=== PATIENT | female | born 1970 | race Caucasian/White ===

== ENCOUNTER 2021-10-01 12:19 | Inpatient (IN) ==
--- NOTE | 2021-10-01 14:31 | DR.H&P ---
H&P - History & Physical for Day of: H&P Date: 10/01/21 - Chief Complaint Chief Complaint: blood in stool - History of Present Illness History of Present Illness: PT IS 51F DIRECT ADMIT FROM DR LAW OFFICE WITH REPORTS OF BLACK TARRY STOOL FOR SEVERAL DAYS AND INCREASED WEAKNESS. PT RECENTLY HAD COVID THEN DEVELOPED DVT/PE AND HAS BEEN ON PO ELIQUIS. PT ALSO HAS KNOWN HX OF IRON DEFICIENCY ANEMIA. PT ADMITTED FOR TREATMENT OF GI BLEED, SYMPTOMATIC ANEMIA - Past Medical History Past Medical History: Anemia, Arthritis - Social History Does patient currently use any type of tobacco product: No Have you used tobacco products in the last 12 months: No Type of Tobacco Use: None Does any household member use tobacco: No Alcohol Use: Occasionally Drug Use: None Risks, benefits, and alternatives of opioids discussed: No Prescription drug monitoring program results: PDMP reviewed and no concerns identified - Review of Systems Constitutional: Weakness, Malaise Eyes: No Symptoms Reported ENT: No Symptoms Reported Respiratory: Shortness of Breath Cardiovascular: Edema Gastrointestinal: Melena Genitourinary: No Symptoms Reported Musculoskeletal: No Symptoms Reported Skin: No Symptoms Reported Neurological: Weakness Oriented: Normal Eyes: Normal Ear: Normal Nose: Normal Throat: Normal Respiratory: RLL Diminished, LLL Diminished Cardiovascular: Normal, Edema : Normal Auscultation: Bowel Sounds: Normal Palpation: Normal Tenderness: Normal Skin: Decreased Turgur Musculoskeletal: Back:Lumbar Affect: Anxious Speech Pattern: Clear, Appropriate - Assessment/Plan (1) GI bleed Status: Acute Plan: ADMIT, OCCULT STOOL X 3. NPO, PROTONIX 40 IV BID, HOLD ELIQUIS. TYPE AND CROSS, THEN TRANSFUSE PRBC PER PROTOCOL. BP AND CARDIAC MONITORING, EKG AND CXR ON ADMISSION. 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
[2021-10-01 14:53] LABS: ABG ALLEN TEST POS; ABG BASE EXCESS 1.4 mmol/L (-2.0-2.0); ABG HCO3 24.7 mmol/L (22-26)
[2021-10-01] MEDS: NS 1,000 ML IV 1,000 ML IV SCH ×2 (15:12)
[2021-10-01 15:35] LABS: BILIRUBIN,URINE NEGATIVE (NEGATIVE); BLOOD/HEMOGLOBIN,URINE NEGATIVE (NEGATIVE); GLUCOSE, URINE NEGATIVE (NEGATIVE); KETONES,URINE NEGATIVE (NEGATIVE); LEUKOCYTE ESTERASE ,URINE NEGATIVE (NEGATIVE); NITRITES,URINE POSITIVE (NEGATIVE); PROTEIN,URINE 1+ (NEGATIVE); UROBILINOGEN,URINE NORMAL (NORMAL)
[2021-10-01 15:42] LABS: ALANINE AMINOTRANSFERASE 16 Units/L (12-78); ALBUMIN 3.2 g/dL (3.4-5.0); ALKALINE PHOSPHATASE 81 Units/L (46-116); ASPARTATE AMINO TRANSFERASE 12 Units/L (15-37); BLOOD UREA NITROGEN 26 mg/dL (7-18); CALCIUM 8.3 mg/dL (8.5-10.1); CARBON DIOXIDE 25.4 mmol/L (21-32); CHLORIDE 107 mmol/L (98-107); COR CA(FOR HYPOALB) 8.9 mg/dL (8.5-10.1); COR NA(FOR HYPERGLY) 143 mmol/L (136-145); CREATININE 1.11 mg/dL (0.55-1.02); SODIUM 142 mmol/L (136-145); TOTAL PROTEIN 6.1 g/dL (6.4-8.2); eGFR NON BLACK RACES 55 (>60)
[2021-10-01 15:45] LABS: APPEARANCE,URINE SLIGHTLY HAZY (CLEAR); BACTERIA,URINE 3+ /HPF (NEGATIVE); COLOR,URINE YELLOW (YELLOW); RBC,URINE 0-2 /HPF (0-3); SQUAMOUS EPITHELIAL CELL,UR RARE /HPF (NEGATIVE)
[2021-10-01 16:11] LABS: IRON 11 ug/dL (50-175)
[2021-10-01 16:22] LABS: BASOPHILS % (AUTO) 0.7 % (0.2-1.0); EOSINOPHILS # (AUTO) 0.1 x10^3/uL (0.0-0.2); LYMPHOCYTES % (AUTO) 17.3 % (21.0-51.0); MEAN CORPUSCULAR HEMOGLOBIN 19.8 pg (27.0-34.0); MEAN CORPUSCULAR HGB CONC 31.4 g/dL (33.0-35.0); MEAN CORPUSCULAR VOLUME 62.9 fL (80.0-100.0); MEAN PLATELET VOLUME 8.5 fL (7.4-11.0); MONOCYTES # (AUTO) 0.5 x10^3/uL (0.3-0.8); NEUTROPHILS # (AUTO) 4.3 x10^3/uL (2.2-4.8); RED CELL DISTRIBUTION WIDTH 21.1 % (11.6-16.5)
--- NOTE | 2021-10-01 16:29 | RAD ---
HISTORYSOBSTUDYCHEST x-ray, 1 VIEWCOMPARISONNoneFINDINGSThere is left retrocardiac opacity that could be elevated left hemidiaphragm, mass, hiatus hernia, rounded atelectasis, or rounded pneumonia. Possible vague right middle lobe infiltrate is seen, also. Lung volumes are very low. No pneumothorax is seen. Heart is probably normal in size.IMPRESSIONPoor inspiration with left retrocardiac density that is of uncertain etiology. As no prior exams are available for comparison, recommend further evaluation with contrast enhanced CT of the chest.Electronically signed by: Pk Anthony (Oct 01, 2021 16:27:22)
[2021-10-01 16:38] LABS: HEMATOCRIT 17.6 % (36.0-47.0); HEMOGLOBIN 5.5 g/dL (12.0-16.0)
[2021-10-01 16:39] LABS: ANISOCYTOSIS 1+; MICROCYTOSIS 2+; PLATELET MORPHOLOGY COMMENT NORMAL (NORMAL)
[2021-10-01] MEDS ORDERED: TYLENOL 325 MG TAB PO ONE (17:15)
[2021-10-01] MEDS: ROCEPHIN VIAL 1 GRAM 1 G in NS 100 ML IV 100 ML IV SCH (17:31)
[2021-10-01] MEDS: PROTONIX INJ 40 MG VIAL IVP SCH ×2 (17:31→20:03)
[2021-10-01] MEDS ORDERED: POTASSIUM CHL 60 MEQ/NS 0.45% 500 ML IV PRN (18:19)
[2021-10-01] MEDS ORDERED: KLOR-CON PO PRN (18:19)
[2021-10-01] MEDS ORDERED: MICRO K EXTEN CAP 10 MEQ PO PRN (18:19)
[2021-10-01] MEDS ORDERED: POTASSIUM CHLORIDE LIQ 20 MEQ UDC PO PRN (18:19)
[2021-10-01] MEDS ORDERED: POTASSIUM CHL 40 MEQ/NS 0.45% 500 ML IV PRN (18:19)
[2021-10-01] MEDS: K-DUR TAB 20 MEQ PO PRN (20:03)
[2021-10-02] MEDS: NS 1,000 ML IV 1,000 ML IV SCH ×3 (04:57→20:15)
[2021-10-02 05:59] LABS: EOSINOPHILS # (AUTO) 0.1 x10^3/uL (0.0-0.2); EOSINOPHILS % (AUTO) 1.9 % (0.9-2.9); LYMPHOCYTES # (AUTO) 1.3 X10^3/uL (1.3-2.9); LYMPHOCYTES % (AUTO) 28.8 % (21.0-51.0); MEAN CORPUSCULAR HEMOGLOBIN 19.7 pg (27.0-34.0); MEAN CORPUSCULAR HGB CONC 30.9 g/dL (33.0-35.0); MEAN CORPUSCULAR VOLUME 63.7 fL (80.0-100.0); MEAN PLATELET VOLUME 8.9 fL (7.4-11.0); MONOCYTES # (AUTO) 0.4 x10^3/uL (0.3-0.8); MONOCYTES % (AUTO) 8.9 % (0.0-13.0); NEUTROPHILS # (AUTO) 2.7 x10^3/uL (2.2-4.8); NEUTROPHILS % (AUTO) 59.4 % (42.0-75.0); RED BLOOD COUNT 2.38 X10^6/uL (3.5-5.4); WHITE BLOOD COUNT 4.5 X10^3/uL (3.6-10.0)
[2021-10-02 06:02] LABS: ALANINE AMINOTRANSFERASE 15 Units/L (12-78); ALBUMIN 2.6 g/dL (3.4-5.0); ALKALINE PHOSPHATASE 67 Units/L (46-116); ASPARTATE AMINO TRANSFERASE 14 Units/L (15-37); BLOOD UREA NITROGEN 19 mg/dL (7-18); CALCIUM 8.1 mg/dL (8.5-10.1); CARBON DIOXIDE 27.1 mmol/L (21-32); CHLORIDE 109 mmol/L (98-107); COR CA(FOR HYPOALB) 9.2 mg/dL (8.5-10.1); CREATININE 0.83 mg/dL (0.55-1.02); SODIUM 143 mmol/L (136-145); TOTAL PROTEIN 5.3 g/dL (6.4-8.2); eGFR NON BLACK RACES > 60 (>60)
[2021-10-02 06:19] LABS: HEMATOCRIT 15.1 % (36.0-47.0); HEMOGLOBIN 4.7 g/dL (12.0-16.0)
[2021-10-02 06:20] LABS: ANISOCYTOSIS 1+; HYPOCHROMASIA 3+; MICROCYTOSIS 2+; PLATELET MORPHOLOGY COMMENT NORMAL (NORMAL); POIKILOCYTOSIS 1+; TARGET CELLS PRESENT
[2021-10-02] MEDS: ROCEPHIN VIAL 1 GRAM 1 G in NS 100 ML IV 100 ML IV SCH (08:21)
[2021-10-02] MEDS: PROTONIX INJ 40 MG VIAL IVP SCH ×2 (08:21→20:13)
[2021-10-02] MEDS ORDERED: NS 100 ML IV 100 ML with VENOFER 400 MG IV NR ×2 (09:00)
--- NOTE | 2021-10-02 12:12 | VAS ---
HISTORY: [Extremity pain, swelling, and edema]Study: Bilateral lower extremity Doppler venous ultrasound.TECHNIQUE: Multiple mast scale and color flow Doppler images of the deep venous system were obtained of the [right and left] lower extremity.FINDINGS: The deep venous system of the [right and left lower extremities were] evaluated from the level of the common femoral veins through the popliteal veins, bilaterally. Normal color flow and augmentation can be observed. In addition, normal compression is seen throughout the deep venous system. [No Zepeda's cyst is seen].IMPRESSION:1. Negative examination for DVT.Electronically signed by: MICHELLE THEODORE III (Oct 02, 2021 12:10:47)
[2021-10-02 12:31] LABS: HEMATOCRIT 16.1 % (36.0-47.0); HEMOGLOBIN 4.9 g/dL (12.0-16.0)
[2021-10-02] MEDS ORDERED: PROCRIT or EPOGEN VIAL 40,000 UNITS SC ONE (22:13)
[2021-10-02 22:33] LABS: BASOPHILS % (AUTO) 0.8 % (0.2-1.0); MEAN CORPUSCULAR HEMOGLOBIN 19.5 pg (27.0-34.0); MEAN CORPUSCULAR HGB CONC 30.8 g/dL (33.0-35.0); MONOCYTES # (AUTO) 0.5 x10^3/uL (0.3-0.8); MONOCYTES % (AUTO) 8.8 % (0.0-13.0); NEUTROPHILS # (AUTO) 4.6 x10^3/uL (2.2-4.8)
[2021-10-02 22:37] LABS: EOSINOPHILS % (AUTO) 0.7 % (0.9-2.9); LYMPHOCYTES # (AUTO) 0.9 X10^3/uL (1.3-2.9); LYMPHOCYTES % (AUTO) 14.3 % (21.0-51.0); MEAN CORPUSCULAR VOLUME 63.3 fL (80.0-100.0); MEAN PLATELET VOLUME 8.6 fL (7.4-11.0); NEUTROPHILS % (AUTO) 75.4 % (42.0-75.0); RED BLOOD COUNT 2.57 X10^6/uL (3.5-5.4); RED CELL DISTRIBUTION WIDTH 21.2 % (11.6-16.5); WHITE BLOOD COUNT 6.1 X10^3/uL (3.6-10.0)
[2021-10-02 22:44] LABS: HEMATOCRIT 16.2 % (36.0-47.0)
[2021-10-02 22:55] LABS: ANISOCYTOSIS 1+; PLATELET MORPHOLOGY COMMENT NORMAL (NORMAL)
[2021-10-02 22:59] LABS: MICROCYTOSIS 2+; POIKILOCYTOSIS 1+; TEAR DROP CELLS PRESENT
[2021-10-02 23:00] LABS: OVALOCYTES PRESENT
[2021-10-02 23:01] LABS: HYPOCHROMASIA 2+
[2021-10-03] MEDS ORDERED: NS 100 ML IV 100 ML ONE (03:54)
[2021-10-03] MEDS ORDERED: NS 250 ML IV 250 ML IV ONE (07:22)
[2021-10-03] MEDS ORDERED: LASIX IVP ONE (08:27)
[2021-10-03] MEDS: PROTONIX INJ 40 MG VIAL IVP SCH ×2 (08:39→20:20)
[2021-10-03] MEDS: ROCEPHIN VIAL 1 GRAM 1 G in NS 100 ML IV 100 ML IV SCH (08:40)
[2021-10-03 10:32] LABS: TEAR DROP CELLS PRESENT
[2021-10-03] MEDS ORDERED: LASIX ONE (11:16)
[2021-10-03] MEDS: NS 1,000 ML IV 1,000 ML IV SCH ×2 (11:25→22:46)
--- NOTE | 2021-10-03 12:15 | PCM.PROG ---
Progress Note - Progress Note for Day of Date of Exam: 10/03/21 - Subjective Subjective: PT IS 51 WF DIRECT ADMIT FROM DR LAW OFFICE WITH GI BLEED AND SYMPTOMATIC ANEMIA. PT WAS NPO EXCEPT FOR PO MEDICATION WITH NS AT 50CC/HR FOR GENTLE HYDRATION. PT GIVEN IV IRON INFUSION WITH HGB 4.9. PT INSTRUCTED TO OBTAIN STOOL SAMPLE. PT BP WAS 100/50 LAST PM PRIOR TO RECEIVING FIRST UNIT PRBC, IMPROVING TO 128/77 THIS AM POST FIST UNIT. PT HGB AT 5.0 THIS MORNING. PLAN TO CONTINUE WITH 2ND UNIT PRBC. PT GIVEN PROTCRIT 40K INJECTION LAST PM PER DR LAW. PT REPORTS LAST EGD AND COLOSCOPY WAS IN [place] OVER 6 MOS AGO. PT HAD BEEN ON ELIQUIS FOR DVT/PE SINCE April, POST COVID COMPLICATIONS. WE ARE CURRENTLY HOLDING ANTICOAGULANT THERAPY DUE TO GI BLEED. DR LOPEZ TO [facility] FOR EVALUATION OF EGD. PT HAS LONG-TERM NSAID USE. - Past Medical Family Social History Past Med/Fam/Surg Hx: No changes since H&P Allergies: Allergies No Known Drug Allergies [NKDA] Allergy (Verified 10/01/21 14:41) - Review of Systems ROS: No change since H&P - Vital Signs and I&O's Vital Signs: Temperature 98.3 F Pulse Rate [Left] 99 Respiratory Rate 20 Blood Pressure [Right Arm] 108/64 Blood Pressure [Left Arm] 118/58 O2 Sat by Pulse Oximetry 100 Intake and Output: Intake & Output 10/01/21 10/02/21 10/03/21 10/04/21 11:59 11:59 11:59 11:59 Intake Total 1349 / 1349 2403 / 2403 Balance 1349 / 1349 2403 / 2403 - Physical Exam Oriented: Normal Eyes: Normal Ear: Normal Nose: Normal Throat: Normal Respiratory: Diminished Cardiovascular: Normal, Edema : Normal Auscultation: Bowel Sounds: Normal Tenderness: Normal Skin: Decreased Turgur Musculoskeletal: Right, Left, Leg, Back:Lumbar, Tender Affect: Anxious Speech Pattern: Clear, Appropriate - Laboratory and Diagnostics Result Diagrams: 10/02/21 22:21 10/02/21 04:35 Labs: 10/01/21 17:27 Blood Blood Culture - Preliminary 10/01/21 14:33 Urine,Clean Catch Urine Culture - Preliminary Laboratory WBC 6.1 X10^3/uL (3.6-10.0) 10/02/21 22:21 RBC 2.57 X10^6/uL (3.5-5.4) L 10/02/21 22:21 Hgb 5.0 g/dL (12.0-16.0) L* 10/02/21 22:21 Hct 16.2 % (36.0-47.0) L* 10/02/21 22:21 MCV 63.3 fL (80.0-100.0) L 10/02/21 22:21 MCH 19.5 pg (27.0-34.0) L 10/02/21 22:21 MCHC 30.8 g/dL (33.0-35.0) L 10/02/21 22:21 RDW 21.2 % (11.6-16.5) H 10/02/21 22:21 Plt Count 191 X10^3/uL (150.0-450.0) 10/02/21 22:21 Plt Count Comment Adequate (ADEQUATE) 10/02/21 22:21 MPV 8.6 fL (7.4-11.0) 10/02/21 22:21 Neut % (Auto) 75.4 % (42.0-75.0) H 10/02/21 22:21 Lymph % (Auto) 14.3 % (21.0-51.0) L 10/02/21 22:21 [place] % (Auto) 8.8 % (0.0-13.0) 10/02/21 22:21 Eos % (Auto) 0.7 % (0.9-2.9) L 10/02/21 22:21 Baso % (Auto) 0.8 % (0.2-1.0) 10/02/21 22:21 Neut # (Auto) 4.6 x10^3/uL (2.2-4.8) 10/02/21 22:21 Lymph # (Auto) 0.9 X10^3/uL (1.3-2.9) L 10/02/21 22:21 [place] # (Auto) 0.5 x10^3/uL (0.3-0.8) 10/02/21 22:21 Eos # (Auto) 0.0 x10^3/uL (0.0-0.2) 10/02/21 22:21 Baso # (Auto) 0.0 X10^3/uL (0.0-0.1) 10/02/21 22:21 Absolute Nucleated RBC 0.9 /100WBC 10/02/21 22:21 Plt Morphology Comment Normal (NORMAL) 10/02/21 22:21 RBC Morphology Abnormal (NORMAL) A 10/02/21 22:21 Hypochromasia 2+ A 10/02/21 22:21 Poikilocytosis 1+ A 10/02/21 22:21 Anisocytosis 1+ A 10/02/21 22:21 Microcytosis 2+ A 10/02/21 22:21 Target Cells Present 10/02/21 04:35 Tear Drop Cells Present 10/02/21 22:21 Ovalocytes Present 10/02/21 22:21 Sample Site Rrad 10/01/21 14:47 ABG pH 7.470 (7.35-7.45) H 10/01/21 14:47 ABG pCO2 34.0 mmHg (35.0-45.0) L 10/01/21 14:47 ABG pO2 92.0 mmHg (80.0-100.0) 10/01/21 14:47 ABG HCO3 24.7 mmol/L (22-26) 10/01/21 14:47 ABG O2 Saturation 98.0 % (90-100) 10/01/21 14:47 ABG Base Excess 1.4 mmol/L (-2.0-2.0) 10/01/21 14:47 Latrell Test Pos 10/01/21 14:47 A-a Gradient 15.0 mmHg 10/01/21 14:47 FiO2 21.0 10/01/21 14:47 Blood Gas Comments Pt stefania well elj sd 10/01/21 14:47 Sodium 143 mmol/L (136-145) 10/02/21 04:35 Corrected Sodium TNP 10/02/21 04:35 Potassium 3.9 mmol/L (3.5-5.1) 10/02/21 04:35 Chloride 109 mmol/L (98-107) H 10/02/21 04:35 Carbon Dioxide 27.1 mmol/L (21-32) 10/02/21 04:35 BUN 19 mg/dL (7-18) H 10/02/21 04:35 Creatinine 0.83 mg/dL (0.55-1.02) 10/02/21 04:35 Est GFR (MDRD) Af Amer > 60 (>60) 10/02/21 04:35 Est GFR (MDRD) Non-Af > 60 (>60) 10/02/21 04:35 Glucose 85 mg/dL (65-99) 10/02/21 04:35 Calcium 8.1 mg/dL (8.5-10.1) L 10/02/21 04:35 Corrected Calcium 9.2 mg/dL (8.5-10.1) 10/02/21 04:35 Magnesium 2.2 mg/dL (1.7-2.9) 10/01/21 15:45 Iron 11 ug/dL (50-175) L 10/01/21 15:45 Transferrin 322 mg/dL (202-364) 10/01/21 15:45 Ferritin 4 ng/mL (8-252) L 10/01/21 15:45 Total Bilirubin 0.30 mg/dL (0.2-1.0) 10/02/21 04:35 AST 14 Units/L (15-37) L 10/02/21 04:35 ALT 15 Units/L (12-78) 10/02/21 04:35 Alkaline Phosphatase 67 Units/L (46-116) 10/02/21 04:35 Total Protein 5.3 g/dL (6.4-8.2) L 10/02/21 04:35 Albumin 2.6 g/dL (3.4-5.0) L 10/02/21 04:35 Globulin 2.7 g/dL (2.5-4.5) 10/02/21 04:35 Albumin/Globulin Ratio 1.0 Ratio (1.1-2.1) L 10/02/21 04:35 Vitamin B12 200 pg/mL (193-986) 10/01/21 15:45 Folate 9.1 ng/mL (>8.6) 10/01/21 15:45 Specimen Type Clean catch urine 10/01/21 14:33 Urine Color Yellow (YELLOW) 10/01/21 14:33 Urine Appearance Slightly hazy (CLEAR) 10/01/21 14:33 Urine pH 6.0 (5.0 - 8.0) 10/01/21 14:33 Ur Specific [place] 1.025 (1.000-1.030) 10/01/21 14:33 Urine Protein 1+ (NEGATIVE) 10/01/21 14:33 Urine Glucose (UA) Negative (NEGATIVE) 10/01/21 14:33 Urine Ketones Negative (NEGATIVE) 10/01/21 14:33 Urine Blood Negative (NEGATIVE) 10/01/21 14:33 Urine Nitrite Positive (NEGATIVE) 10/01/21 14:33 Urine Bilirubin Negative (NEGATIVE) 10/01/21 14:33 Urine Urobilinogen Normal (NORMAL) 10/01/21 14:33 Ur Leukocyte Esterase Negative (NEGATIVE) 10/01/21 14:33 Urine RBC 0-2 /HPF (0-3) 10/01/21 14:33 Urine WBC 0-2 /HPF (0-5) 10/01/21 14:33 Ur Squamous Epith Cells Rare /HPF (NEGATIVE) 10/01/21 14:33 Amorphous Sediment Trace /HPF (NEGATIVE) 10/01/21 14:33 Urine Bacteria 3+ /HPF (NEGATIVE) 10/01/21 14:33 Ur Culture Indicated? Yes/culture set up 10/01/21 14:33 Stool Description 25 grams 10/02/21 18:45 Stl Occult Blood (IFOB) Negative (NEGATIVE) 10/02/21 18:45 Stool H. pylori Ag Negative (NEGATIVE) 10/02/21 18:45 SARS-CoV-2 (PCR) Negative (NEGATIVE) 10/01/21 14:33 Influenza Type A (PCR) Negative (NEGATIVE) 10/01/21 14:33 Influenza Type B (PCR) Negative (NEGATIVE) 10/01/21 14:33 RSV (PCR) Negative (NEGATIVE) 10/01/21 14:33 Blood Type A POSITIVE 10/01/21 15:45 Antibody Screen Negative 10/01/21 15:45 Antibody Identification Anti-Fya Anti-K Anti-c Anti-Susy 10/01/21 15:45 Antibody Identification Anti-Fya Anti-K Anti-c Anti-Susy 10/01/21 15:45 Antibody Identification Anti-Fya Anti-K Anti-c Anti-Susy 10/01/21 15:45 Antibody Identification Anti-Fya Anti-K Anti-c Anti-Susy 10/01/21 15:45 Crossmatch See Detail 10/01/21 15:45 - Plan (1) GI bleed Status: Acute Plan: OCCULT STOOL X 3, GI CONSULT. PROTONIX 40 IV BID, HOLD ELIQUIS. TYPE AND CROSS, THEN TRANSFUSE 2U PRBC PER PROTOCOL. BP AND CARDIAC MONITORING,. EKG AND CXR ON ADMISSION. 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
[2021-10-03 13:54] LABS: BASOPHILS % (AUTO) 0.7 % (0.2-1.0); EOSINOPHILS % (AUTO) 0.5 % (0.9-2.9); HEMATOCRIT 26.9 % (36.0-47.0); LYMPHOCYTES # (AUTO) 1.1 X10^3/uL (1.3-2.9); LYMPHOCYTES % (AUTO) 15.4 % (21.0-51.0); MEAN CORPUSCULAR HGB CONC 32.1 g/dL (33.0-35.0); MEAN CORPUSCULAR VOLUME 68.5 fL (80.0-100.0); MEAN PLATELET VOLUME 8.7 fL (7.4-11.0); MONOCYTES # (AUTO) 0.6 x10^3/uL (0.3-0.8); MONOCYTES % (AUTO) 8.6 % (0.0-13.0); NEUTROPHILS # (AUTO) 5.3 x10^3/uL (2.2-4.8); NEUTROPHILS % (AUTO) 74.8 % (42.0-75.0); RED BLOOD COUNT 3.93 X10^6/uL (3.5-5.4); RED CELL DISTRIBUTION WIDTH 24.1 % (11.6-16.5)
[2021-10-03 14:09] LABS: ALANINE AMINOTRANSFERASE 21 Units/L (12-78); ALBUMIN 3.3 g/dL (3.4-5.0); ALKALINE PHOSPHATASE 89 Units/L (46-116); ASPARTATE AMINO TRANSFERASE 24 Units/L (15-37); BLOOD UREA NITROGEN 11 mg/dL (7-18); CALCIUM 8.7 mg/dL (8.5-10.1); CARBON DIOXIDE 26.3 mmol/L (21-32); CHLORIDE 108 mmol/L (98-107); COR CA(FOR HYPOALB) 9.3 mg/dL (8.5-10.1); CREATININE 0.91 mg/dL (0.55-1.02); SODIUM 143 mmol/L (136-145); TOTAL PROTEIN 6.6 g/dL (6.4-8.2); eGFR NON BLACK RACES > 60 (>60)
[2021-10-03 14:13] LABS: HEMOGLOBIN 8.6 g/dL (12.0-16.0)
[2021-10-03 14:18] LABS: ANISOCYTOSIS 3+; MICROCYTOSIS 1+; PLATELET MORPHOLOGY COMMENT NORMAL (NORMAL)
[2021-10-03 14:19] LABS: OVALOCYTES PRESENT; TEAR DROP CELLS PRESENT
[2021-10-03] MEDS ORDERED: GOLYTELY or GAVILYTE or Equivalent PO SCH (15:00)
[2021-10-03] MEDS: K-DUR TAB 20 MEQ PO PRN (20:21)
[2021-10-03] MEDS: ZOFRAN INJ 4 MG VIAL IVP PRN (22:34)
[2021-10-04] MEDS: ZOFRAN INJ 4 MG VIAL IVP PRN (04:20)
[2021-10-04 05:19] LABS: BASOPHILS # (AUTO) 0.1 X10^3/uL (0.0-0.1); BASOPHILS % (AUTO) 1.1 % (0.2-1.0); EOSINOPHILS % (AUTO) 0.4 % (0.9-2.9); HEMOGLOBIN 7.4 g/dL (12.0-16.0); LYMPHOCYTES % (AUTO) 18.6 % (21.0-51.0); MEAN CORPUSCULAR HEMOGLOBIN 21.9 pg (27.0-34.0); MEAN CORPUSCULAR HGB CONC 32.3 g/dL (33.0-35.0); MEAN CORPUSCULAR VOLUME 67.9 fL (80.0-100.0); MONOCYTES # (AUTO) 0.6 x10^3/uL (0.3-0.8); MONOCYTES % (AUTO) 11.1 % (0.0-13.0); NEUTROPHILS # (AUTO) 3.9 x10^3/uL (2.2-4.8); NEUTROPHILS % (AUTO) 68.8 % (42.0-75.0); RED BLOOD COUNT 3.39 X10^6/uL (3.5-5.4); RED CELL DISTRIBUTION WIDTH 24.4 % (11.6-16.5); WHITE BLOOD COUNT 5.6 X10^3/uL (3.6-10.0)
[2021-10-04 05:35] LABS: ALANINE AMINOTRANSFERASE 23 Units/L (12-78); ALBUMIN 3.2 g/dL (3.4-5.0); ALKALINE PHOSPHATASE 82 Units/L (46-116); ASPARTATE AMINO TRANSFERASE 23 Units/L (15-37); BLOOD UREA NITROGEN 10 mg/dL (7-18); CALCIUM 8.5 mg/dL (8.5-10.1); CARBON DIOXIDE 22.7 mmol/L (21-32); CHLORIDE 106 mmol/L (98-107); COR CA(FOR HYPOALB) 9.1 mg/dL (8.5-10.1); CREATININE 0.98 mg/dL (0.55-1.02); SODIUM 141 mmol/L (136-145); TOTAL PROTEIN 6.1 g/dL (6.4-8.2); eGFR NON BLACK RACES > 60 (>60)
[2021-10-04 05:43] LABS: ANISOCYTOSIS 3+; HYPOCHROMASIA 2+; MICROCYTOSIS 1+; PLATELET MORPHOLOGY COMMENT NORMAL (NORMAL)
[2021-10-04 05:44] LABS: OVALOCYTES PRESENT; TEAR DROP CELLS PRESENT
[2021-10-04] MEDS: K-RIDER 10 MEQ/NS 100 ML 10 MEQ/100 ML BAG IV PRN ×2 (06:09→07:38)
[2021-10-04] MEDS: PROTONIX INJ 40 MG VIAL IVP SCH ×2 (08:42→21:06)
[2021-10-04] MEDS: ROCEPHIN VIAL 1 GRAM 1 G in NS 100 ML IV 100 ML IV SCH (08:44)
[2021-10-04] MEDS ORDERED: NS 1,000 ML IV 1,000 ML ONE (10:29)
[2021-10-04] MEDS ORDERED: DIPRIVAN VIAL 20 ML ONE ×3 (10:30→11:02)
[2021-10-04] MEDS ORDERED: FENTANYL VIAL INJ 100 mcg ONE (11:01)
[2021-10-04] MEDS: NS 1,000 ML IV 1,000 ML IV SCH (12:42)
[2021-10-04] MEDS: HEMOCYTE-PLUS PO SCH (14:04)
[2021-10-04] MEDS: LEVAQUIN PREMIX IV 750 MG 750 MG/150 ML BAG IV SCH (14:04)
[2021-10-04] MEDS: NEURONTIN CAP 300 MG PO SCH ×2 (14:04→21:08)
[2021-10-05] MEDS: NS 1,000 ML IV 1,000 ML IV SCH ×2 (02:50→13:13)
[2021-10-05] MEDS: NEURONTIN CAP 300 MG PO SCH ×3 (05:30→21:14)
[2021-10-05] MEDS: MAGNESIUM SULFATE 1 GRAM/100 mL PREMIX 1 G/100 ML BAG IV PRN ×2 (05:31→11:23)
[2021-10-05 05:56] LABS: BASOPHILS % (AUTO) 0.9 % (0.2-1.0); EOSINOPHILS % (AUTO) 0.8 % (0.9-2.9); HEMATOCRIT 22.4 % (36.0-47.0); HEMOGLOBIN 7.1 g/dL (12.0-16.0); LYMPHOCYTES # (AUTO) 1.4 X10^3/uL (1.3-2.9); LYMPHOCYTES % (AUTO) 24.6 % (21.0-51.0); MEAN CORPUSCULAR HEMOGLOBIN 22.1 pg (27.0-34.0); MEAN CORPUSCULAR HGB CONC 31.6 g/dL (33.0-35.0); MEAN CORPUSCULAR VOLUME 69.9 fL (80.0-100.0); MEAN PLATELET VOLUME 8.9 fL (7.4-11.0); MONOCYTES # (AUTO) 0.6 x10^3/uL (0.3-0.8); MONOCYTES % (AUTO) 10.4 % (0.0-13.0); NEUTROPHILS # (AUTO) 3.5 x10^3/uL (2.2-4.8); NEUTROPHILS % (AUTO) 63.3 % (42.0-75.0); RED CELL DISTRIBUTION WIDTH 24.5 % (11.6-16.5); WHITE BLOOD COUNT 5.6 X10^3/uL (3.6-10.0)
[2021-10-05 06:04] LABS: ALANINE AMINOTRANSFERASE 21 Units/L (12-78); ALBUMIN 2.8 g/dL (3.4-5.0); ALKALINE PHOSPHATASE 73 Units/L (46-116); ASPARTATE AMINO TRANSFERASE 17 Units/L (15-37); BLOOD UREA NITROGEN 11 mg/dL (7-18); CALCIUM 8.1 mg/dL (8.5-10.1); CHLORIDE 111 mmol/L (98-107); COR CA(FOR HYPOALB) 9.1 mg/dL (8.5-10.1); CREATININE 1.03 mg/dL (0.55-1.02); MAGNESIUM 1.9 mg/dL (1.7-2.9); SODIUM 144 mmol/L (136-145); TOTAL PROTEIN 5.5 g/dL (6.4-8.2); eGFR NON BLACK RACES 60 (>60)
[2021-10-05 06:17] LABS: ANISOCYTOSIS 3+; MICROCYTOSIS 1+; PLATELET MORPHOLOGY COMMENT NORMAL (NORMAL)
[2021-10-05 06:19] LABS: HYPOCHROMASIA 1+
[2021-10-05 06:20] LABS: TEAR DROP CELLS SLIGHT
[2021-10-05 06:21] LABS: OVALOCYTES 1+
[2021-10-05] MEDS: PROTONIX INJ 40 MG VIAL IVP SCH ×2 (09:22→21:14)
[2021-10-05] MEDS: HEMOCYTE-PLUS PO SCH (09:23)
[2021-10-05] MEDS: LEVAQUIN PREMIX IV 750 MG 750 MG/150 ML BAG IV SCH (09:23)
[2021-10-05] MEDS: K-DUR TAB 20 MEQ PO PRN (09:23)
[2021-10-05] MEDS ORDERED: TYLENOL 325 MG TAB PO ONE ×2 (10:56→14:30)
[2021-10-05] MEDS ORDERED: BENADRYL INJ 50 MG VIAL IVP ONE (10:56)
[2021-10-05] MEDS ORDERED: BENADRYL INJ 50 MG VIAL ONE (14:31)
[2021-10-05] MEDS ORDERED: NS 250 ML IV 250 ML IV ONE (14:31)
[2021-10-05] MEDS ORDERED: LASIX IVP ONE (18:40)
[2021-10-05] MEDS ORDERED: MICRO K EXTEN CAP 10 MEQ PO ONE (18:41)
[2021-10-05 20:25] LABS: HEMATOCRIT 28.7 % (36.0-47.0); HEMOGLOBIN 8.9 g/dL (12.0-16.0)
[2021-10-06] MEDS: NEURONTIN CAP 300 MG PO SCH ×2 (05:15→13:21)
[2021-10-06 06:48] LABS: MAGNESIUM 2.2 mg/dL (1.7-2.9); TOTAL PROTEIN 5.9 g/dL (6.4-8.2); eGFR NON BLACK RACES > 60 (>60)
[2021-10-06 07:15] LABS: BASOPHILS # (AUTO) 0.1 X10^3/uL (0.0-0.1); BASOPHILS % (AUTO) 0.9 % (0.2-1.0); EOSINOPHILS # (AUTO) 0.1 x10^3/uL (0.0-0.2); HEMATOCRIT 27.1 % (36.0-47.0); HEMOGLOBIN 8.6 g/dL (12.0-16.0); LYMPHOCYTES # (AUTO) 1.3 X10^3/uL (1.3-2.9); LYMPHOCYTES % (AUTO) 20.8 % (21.0-51.0); MEAN CORPUSCULAR HEMOGLOBIN 23.2 pg (27.0-34.0); MEAN CORPUSCULAR HGB CONC 31.9 g/dL (33.0-35.0); MEAN CORPUSCULAR VOLUME 72.9 fL (80.0-100.0); MEAN PLATELET VOLUME 8.5 fL (7.4-11.0); MONOCYTES # (AUTO) 0.7 x10^3/uL (0.3-0.8); MONOCYTES % (AUTO) 10.9 % (0.0-13.0); NEUTROPHILS # (AUTO) 4.1 x10^3/uL (2.2-4.8); NEUTROPHILS % (AUTO) 66.4 % (42.0-75.0); RED BLOOD COUNT 3.71 X10^6/uL (3.5-5.4); RED CELL DISTRIBUTION WIDTH 26.4 % (11.6-16.5); WHITE BLOOD COUNT 6.1 X10^3/uL (3.6-10.0)
[2021-10-06 07:23] LABS: ALANINE AMINOTRANSFERASE 19 Units/L (12-78); ALKALINE PHOSPHATASE 84 Units/L (46-116); ASPARTATE AMINO TRANSFERASE 16 Units/L (15-37); BLOOD UREA NITROGEN 10 mg/dL (7-18); CALCIUM 8.5 mg/dL (8.5-10.1); CARBON DIOXIDE 26.2 mmol/L (21-32); CHLORIDE 109 mmol/L (98-107); COR CA(FOR HYPOALB) 9.3 mg/dL (8.5-10.1); CREATININE 0.98 mg/dL (0.55-1.02); SODIUM 143 mmol/L (136-145)
[2021-10-06 08:06] LABS: ANISOCYTOSIS 3+; HYPOCHROMASIA 1+; MICROCYTOSIS SLIGHT; PLATELET MORPHOLOGY COMMENT NORMAL (NORMAL)
[2021-10-06 08:09] LABS: OVALOCYTES PRESENT
[2021-10-06 08:11] LABS: STOMATOCYTES PRESENT
[2021-10-06 08:12] LABS: TEAR DROP CELLS PRESENT
[2021-10-06] MEDS: PROTONIX INJ 40 MG VIAL IVP SCH (09:50)
[2021-10-06] MEDS: HEMOCYTE-PLUS PO SCH (09:50)
[2021-10-06] MEDS: LEVAQUIN PREMIX IV 750 MG 750 MG/150 ML BAG IV SCH (09:50)
[2021-10-06] MEDS: NS 1,000 ML IV 1,000 ML IV SCH (10:25)
[2021-10-06] MEDS: K-DUR TAB 20 MEQ PO PRN (10:26)
[2021-10-06 13:05] VITALS: BP 139/78
== END 2021-10-06 13:55 | disposition home or self-care (01) | DRG 378 ==
LOC: MED/SURG → EDBD → OBSVTOIN 14:04
PROVIDERS: ADMIT Internal Medicine; ATTEND Internal Medicine
DX: K62.5 Hemorrhage of anus and rectum; A02.8 Other specified salmonella infections; Z20.822 Contact with and (suspected) exposure to COVID-19; K29.00 Acute gastritis without bleeding; K62.1 Rectal polyp; R19.7 Diarrhea, unspecified; D64.89 Other specified anemias; R06.02 Shortness of breath; K44.9 Diaphragmatic hernia without obstruction or gangrene; E66.01 Morbid (severe) obesity due to excess calories